=== PATIENT | female | born 1980 | race Caucasian/White ===

== ENCOUNTER → 2025-01-17 13:11 | Outpatient (CLI) | payer BC, SELFPAY ==
--- NOTE | 2025-01-17 13:17 | DI.US.S_ITS ---
PROCEDURE: US ABDOMEN COMPLETE INDICATIONS: abd pain/cholelithiasis TECHNIQUE: Real-time scanning was performed of the abdominal and retroperitoneal organs, with image documentation. COMPARISON: None. FINDINGS: Liver: Liver is normal in size and homogeneous in echotexture. Gallbladder: Multiple gallstones are noted in the gallbladder. Largest gallstone measures approximately 8 mm in size. No wall thickening. No pericholecystic fluid. No evidence for abnormal sonographic Cox sign. Biliary ducts: Intrahepatic bile ducts are non-dilated. Extrahepatic bile duct caliber measures 4 mm. Normal is 6-7 mm or less in diameter, or 10 mm or less post-cholecystectomy. Pancreas: Visualized portions of the pancreas are sonographically normal. Spleen: Spleen is normal in size and homogeneous in echotexture. Kidneys: Kidneys are normal in size and echotexture. Right kidney measures 10.6 cm long; left kidney measures 12.1 cm long. No hydronephrosis or nephrolithiasis. No solid masses. Aorta: Visualized aorta is normal in caliber at less than 3 cm. Iliacs: Proximal common iliac arteries are normal in caliber at less than 2.5 cm. IVC: Intrahepatic inferior vena cava is patent. Miscellaneous: No free abdominal fluid. IMPRESSION: Cholelithiasis without sonographic evidence for acute cholecystitis. Otherwise, unremarkable sonographic evaluation of the abdomen. Dictated by: Rene Fuller M.D. on 01/17/2025 at 16:49 Approved by: Rene Fuller M.D. on 01/17/2025 at 16:50
== END ==
PROVIDERS: PCP Naturopath; Referring Provider Naturopath; Visit Provider Naturopath
DX: K80.80 Other cholelithiasis without obstruction (principal); R10.9 Unspecified abdominal pain
CPT/HCPCS: 76700

== ENCOUNTER → 2025-01-21 09:10 | Outpatient (CLI) | payer BC, SELFPAY ==
--- NOTE | 2025-01-21 09:12 | DI.MG.S_ITS ---
MM screening mammo BI: 01/21/2025. BI-RADS: 0 CLINICAL: 44-year old female for bilateral screening mammogram. Tyrer-Cuzick lifetime risk of 13.3%. No personal or first-degree family history of breast cancer. Current reported family history of breast cancer: maternal grandmother and paternal aunt. PRIOR EXAMS: None. This is a baseline mammogram. MAMMOGRAPHY TECHNIQUE: 2D and 3D (tomosynthesis) digital mammographic views obtained, with additional images as needed for full coverage. Current study was also evaluated with a Computer Aided Detection (CAD) system. DENSITY B. There are scattered areas of fibroglandular density. MAMMOGRAPHY FINDINGS Right: Benign-appearing intramammary lymph node noted on the right. There are no suspicious masses, calcifications, or other findings in the breast. Left: Outer Central, Middle depth, measuring 0.4 cm: Focal asymmetry needing additional imaging evaluation. IMPRESSION: Right * No evidence of malignancy with benign findings. Left (Asymmetry): Outer Central, Middle depth, measuring 0.4 cm * Incomplete - focal asymmetry needing additional imaging evaluation. RECOMMENDATIONS Left: Outer Central, Middle depth * Further evaluation with diagnostic mammography and diagnostic ultrasound. Ultrasound to be performed only if needed. OVERALL ASSESSMENT CATEGORY BI-RADS-0: Incomplete - Need Additional Imaging Evaluation. ELECTRONICALLY SIGNED: María Braswell M.D. on 01/21/2025 at 02:41:54 PM PT Interpreting Station ID: [id number]
== END ==
PROVIDERS: PCP Naturopath; Referring Provider Naturopath; Visit Provider Naturopath
DX: Z12.31 Encounter for screening mammogram for malignant neoplasm of breast (principal); Z80.3 Family history of malignant neoplasm of breast
CPT/HCPCS: 77063; 77067